=== PATIENT | male | born 1945 | race Caucasian/White ===

== ENCOUNTER 2024-08-15 19:16 | Emergency (ER) | payer MEDICARE, OTHER ==
[~2024-08-15] VITALS: Ht 177.8 cm; Wt 77.2 kg
--- NOTE | 2024-08-15 19:57 | ED.PDOC ---
History of Present Illness HPI Comments 79 y/o M is BIBA for c/o ingestion and suicidal ideations, today. Per EMS report, patient ingested 10mg of his 's morphine medication in addition to drinking heavy amount of EtOH in an attempt to end his life following his recent CA Dx and hospice placement. Per [facility] report, patient is GCS15 and is A &Ox4. Patient, at time of assessment, endorses sentiment on having no reason to live prior to doing aforementioned actions but, now, has second thoughts. He denies having any homicidal ideations, visual or auditory hallucinations, nausea, vomiting, weakness, tremors, or other associated symptoms or modifiers at this time. It appears to just be in morning for the end of his 's life. Patient does not have a counselor or any access to grief counseling. Chief Complaint: Suicidal Time Seen by MD: 19:30 Reviewed Notes: Nurses Notes, Medications, Allergies Information Source: Patient, Emergency Med Personnel Mode of Arrival: Ambulatory Severity: Moderate Timing: Hours Duration: Since onset Prehospital treatment: None Past Medical History PAST MEDICAL HISTORY: Denies Surgical History: Denies all surgeries Family History Family History: Unknown Social History Smoker: Non-Smoker Alcohol: Occasionally Drugs: Denies Drug Use Lives In: Home Constitutional: reports: others (EtOH and opioid ingestion ); denies: chills, diaphoresis, fatigue, fever, malaise, sweats, weakness EENTM: denies: blurred vision, double vision, ear bleeding, ear discharge, ear drainage, ear pain, ear ringing, eye pain, eye redness, hearing loss, mouth pain, mouth swelling, nasal discharge, nose bleeding, nose congestion, nose pain, photophobia, tearing, throat pain, throat swelling, voice changes, others Respiratory: denies: cough, hemoptysis, orthopnea, SOB at rest, shortness of breath, SOB with excertion, stridor, wheezing, others Cardiovascular: denies: chest pain, dizzy spells, diaphoresis, Dyspnea on exertion, edema, irregular heart beat, left arm pain, lightheadedness, palpitations, PND, syncope, others Gastrointestinal: denies: abdomen distended, abdominal pain, blood streaked bowels, constipated, diarrhea, dysphagia, difficulty swallowing, hematemesis, melena, nausea, poor appetite, poor fluid intake, rectal bleeding, rectal pain, vomiting, others Genitourinary: denies: burning, dysuria, flank pain, frequency, hematuria, incontinence, penile discharge, penile sore, pain, testicle pain, testicle swelling, urgency, others Neurological: denies: dizziness, fainting, headache, left sided numbness, left sided weakness, numbness, paresthesia, pre-existing deficit, right sided numbness, right sided weakness, seizure, speech problems, tingling, tremors, weakness, others Musculoskeletal: denies: back pain, gout, joint pain, joint swelling, muscle pain, muscle stiffness, neck pain, others Integumetry: denies: bruises, change in color, change in hair/nails, dryness, laceration, lesions, lumps, rash, wounds, others Allergic/Immunocompromised: denies: Difficulty Healing, Frequent Infections, Hives, Itching, others Hematologic/Lymphatic: denies: anemia, blood clots, easy bleeding, easy bruising, swollen glands, others Endocrine: denies: excessive hunger, excessive sweating, excessive thirst, excessive urination, flushing, intolerance to cold, intolerance to heat, unexplained weight gain, unexplained weight loss, others Psychiatric: reports: depression, suicidal; denies: anxiety, bipolar disorder, hopeless, panic disorder, schizophrenia, sleepless, others All Other Systems: Reviewed and Negative (all pertinent negative unless otherwise stated in HPI) Physical Exam General Appearance: Moderate Distress (Patient is a moderate distress due to grief related to his 's chronic and terminal illness.), Normal HEENT: Normal ENT Inspection, Pharynx Normal, TMs Normal Neck: Full Range of Motion, Non-Tender, Normal, Normal Inspection Respiratory: Chest Non-Tender, Lungs Clear, No Accessory Muscle Use, No Respiratory Distress, Normal Breath Sounds Cardiovascular: No Edema, No JVD, No Murmur, No Gallop, Normal Peripheral Pulses, Regular Rate/Rhythm Breast Exam: Deferred Gastrointestinal: No Organomegaly, Non Tender, No Pulsatile Mass, Normal Bowel Sounds, Soft Genitalia: Deferred Pelvic: Deferred Rectal: Deferred Extremities: No calf tenderness, Normal capillary refill, Normal inspection, Normal range of motion, Non-tender, No pedal edema Musculoskeletal : Apperance: Normal Neurologic: Alert, No Motor Deficits, No Sensory Deficits Cerebellar Function: Normal Reflexes: Normal Skin: Dry, Normal Color, Warm Lymphatic: No Adenopathy Was a procedure done? Was a procedure done?: No Differential Dx Considerations may include: EtOH ingestion, opioid ingestion, overdose, substance abuse, suicidal ideations, hopelessness, depression X-Ray, Labs, Meds, VS Vital Signs Date Time Temp Pulse Resp B/P (MAP) Pulse Ox O2 Delivery O2 Flow Rate FiO2 08/15/24 19:16 98.9 80 14 138/78 (98) 99 Lab Test 08/15/24 19:58 08/15/24 19:52 Range/Units Urine Color Colorless Yellow Urine Clarity Clear Clear Urine pH 5.0 5.0-9.0 Urine Specific [place] 1.008 1.001-1.035 Urine Protein Negative Negative Urine Ketones Negative Negative Urine Blood Negative Negative /uL Urine Nitrite Negative Negative Urine Bilirubin Negative Negative Urine Urobilinogen Normal Negative mg/dL Urine Leukocyte Esterase Negative Negative /uL Urine RBC 1 0 - 3 /hpf Urine WBC <1 0 - 3 /hpf Urine Squamous Epithelial Cells Few <5 /hpf Urine Bacteria None seen None Seen /hpf Urine Glucose Normal Normal mg/dL Urine Opiates Screen Neg NEGATIVE Urine Fentanyl Screen Neg NEGATIVE Urine Barbiturates Screen Neg NEGATIVE Urine Phencyclidine Screen Neg NEGATIVE Urine Amphetamines Screen Neg NEGATIVE Urine Benzodiazepines Screen Neg NEGATIVE Urine Cocaine Screen Neg NEGATIVE Urine Cannabinoids Screen Neg NEGATIVE White Blood Count 7.5 4.4-10.8 10^3/uL Red Blood Count 2.89 L 4.5-5.90 10^6/uL Hemoglobin 12.7 L 13.5-17.5 g/dL Hematocrit 37.2 L 41.0-53.0 % Mean Corpuscular Volume 128.5 H 80.0-100.0 fL Mean Corpuscular Hemoglobin 44.1 H 28.0-32.0 pg Mean Corpuscular Hemoglobin Concent 34.3 32.0-36.0 g/dL Red Cell Distribution Width 15.7 H 11.8-14.3 % Platelet Count 213 140-450 10^3/uL Mean Platelet Volume 7.9 6.9-10.8 fL Neutrophils (%) (Auto) 85.7 H 37.0-80.0 % Lymphocytes (%) (Auto) 8.8 L 10.0-50.0 % Monocytes (%) (Auto) 3.7 0.0-12.0 % Eosinophils (%) (Auto) 1.0 0.0-7.0 % Basophils (%) (Auto) 0.8 0.0-2.0 % Neutrophils # (Auto) 6.4 1.6-8.6 10 ^3/uL Lymphocytes # (Auto) 0.7 0.4-5.4 10 ^3/uL Monocytes # (Auto) 0.3 0-1.3 10 ^3/uL Eosinophils # (Auto) 0.1 0-0.8 10 ^3/uL Basophils # (Auto) 0.1 0-0.2 10 ^3/uL Nucleated Red Blood Cells 0.1 % Sodium Level 143 136-145 mmol/L Potassium Level 4.5 3.5-5.1 mmol/L Chloride Level 108 H 98-107 mmol/L Carbon Dioxide Level 25 20-31 mmol/L Anion Gap 10 5-15 Blood Urea Nitrogen 23 9-23 mg/dL Creatinine 1.26 0.700-1.30 mg/dL Glomerular Filtration Rate Calc 58 >90 mL/min BUN/Creatinine Ratio 18.3 10.0-20.0 Serum Glucose 81 74-106 mg/dL Calcium Level 9.9 8.7-10.4 mg/dL Total Bilirubin 0.5 0.2-1.0 mg/dL Aspartate Amino Transferase (AST) 32 13-40 U/L Alanine Aminotransferase (ALT) 44 H 7-40 U/L Alkaline Phosphatase 87 46-116 U/L Total Protein 7.5 5.7-8.2 g/dL Albumin 4.6 3.2-4.8 g/dL Lipase 53 12-53 U/L Plasma/Serum Blood Alcohol 118.4 H <10 mg/dL X-Ray, Labs, Meds, VS Comment Patient's laboratories were remarkable for ETOH use. Patient spoke with our tele psychiatrist Dr. Glaser. He has cleared with the patient for discharge home and has provide the patient with some resources to aid him moving forward. Time of 1ST Reevaluation: 23:51 Reevaluation 1ST: Improved Consultation: PCP, Psychiatry Patient Education/Counseling: Diagnosis, Treatment Family Education/Counseling: Diagnosis, Treatment, No Family Present Departure 1 Departure Time of Disposition: 23:51 Impression: Primary Impression: Depression Additional Impression: Alcohol abuse Disposition: 01 HOME / SELF CARE / HOMELESS Condition: Stable Additional Instructions: Advised patient cease utilizing alcohol during this difficult time and additi onally, advised following up with some of Dr. Glaser's recommendations to aid in family support during this difficult period. Discharged With: Self, Relative Critical Care Note Critical Care Time?: No Stability Stability form required: No Heart Score Heart Score: Heart Score Response (Comments) Value History N/A 0 EKG N/A 0 Age N/A 0 Risk Factors N/A 0 Troponin N/A 0 Total 0 I personally scribed for SHADIA SANCHEZ PAC ([email or web address]) on 08/15/24 at 19:57. Electronically submitted by Sav Cohen ([email or web address]). SHADIA SANCHEZ PAC Aug 15, 2024 19:57
[2024-08-15 20:06] LABS: Basophils # (auto) 0.1 10 ^3/uL (0-0.2); Basophils % (auto) 0.8 % (0.0-2.0); Eosinophils # (auto) 0.1 10 ^3/uL (0-0.8); Hematocrit 37.2 % (41.0-53.0); Hemoglobin 12.7 g/dL (13.5-17.5); Lymphocytes # (auto) 0.7 10 ^3/uL (0.4-5.4); Lymphocytes % (auto) 8.8 % (10.0-50.0); Mean Corpuscular Hemoglobin 44.1 pg (28.0-32.0); Mean Corpuscular Hgb Conc. 34.3 g/dL (32.0-36.0); Mean Corpuscular Volume 128.5 fL (80.0-100.0); Monocytes # (auto) 0.3 10 ^3/uL (0-1.3); Monocytes % (auto) 3.7 % (0.0-12.0); Neutrophils # (auto) 6.4 10 ^3/uL (1.6-8.6); Neutrophils % (auto) 85.7 % (37.0-80.0); Nucleated Red Blood Cells % 0.1 %; Platelet Count (auto) 213 10^3/uL (140-450); Red Blood Cells 2.89 10^6/uL (4.5-5.90); Red Cell Distribution Width 15.7 % (11.8-14.3); White Blood Cell 7.5 10^3/uL (4.4-10.8)
[2024-08-15 20:42] LABS: Albumin 4.6 g/dL (3.2-4.8); Alkaline Phosphatase 87 U/L (46-116); Anion Gap 10 (5-15); Aspartate Aminotransferase 32 U/L (13-40); BUN/Creatinine Ratio 18.3 (10.0-20.0); Bilirubin, Total 0.5 mg/dL (0.2-1.0); Blood Alcohol 118.4 mg/dL (<10); Blood Urea Nitrogen 23 mg/dL (9-23); Calcium 9.9 mg/dL (8.7-10.4); Carbon Dioxide 25 mmol/L (20-31); Glucose 81 mg/dL (74-106); Potassium 4.5 mmol/L (3.5-5.1); Sodium 143 mmol/L (136-145); Total Protein 7.5 g/dL (5.7-8.2)
[2024-08-15 20:45] LABS: Alanine Aminotransferase 44 U/L (7-40); Chloride 108 mmol/L (98-107)
[2024-08-15 20:55] LABS: Lipase 53 U/L (12-53)
[2024-08-15 21:32] LABS: Urine Bacteria None Seen /hpf (None Seen)
[2024-08-15 21:59] LABS: Urine Blood Negative /uL (Negative); Urine Clarity Clear (Clear); Urine Color Colorless (Yellow); Urine Protein, UAD Negative (Negative); Urine Specific Gravity 1.008 (1.001-1.035); Urine Urobilinogen Normal (Negative); Urine WBC <1 /hpf (0 - 3)
[2024-08-15 22:00] LABS: Amphetamine Screen, Urine Neg (NEGATIVE); Barbiturate Scree,Urine Neg (NEGATIVE); Benzodiazephine Screen, Urine Neg (NEGATIVE); Cocaine Screen, Urine Neg (NEGATIVE)
[2024-08-15 22:01] LABS: Cannabinoid Screen, Urine Neg (NEGATIVE); Opiate Scree,Urine Neg (NEGATIVE); Phencyclidine Screen, Urine Neg (NEGATIVE)
--- NOTE | 2024-08-15 23:54 | DVHINCON2 ---
Date of Service if different f: Aug 15, 2024 Time of Service: 23:28 Consult Consult Note PSYCHIATRY ED NEW CONSULT HPI: 79 yo M with no known PPH presents to ED BIBA for safety, psychiatric stabilization and possible med initiation in setting of suicide attempt via intentional drug OD. Psychiatry consulted for safety evaluation and recommendations in context of current presentation Per pt, reports intentionally ingestion of ~10 cc of his 's morphine that was in her syringe and admits to drinking heavy amount of ETOH/vodka in an attempt to end his life following his recent CA dx and hospice placement at home. Pt now states "i have too much responsibility to take care of my and my family and what I did was stupid and selfish of me". pt adamantly denies SI currently and expresses remorse and regret for earlier ingestion Pt endorses some depressed mood and unspecified anxiety symptoms but denies hopelessness, helplessness, isolation, negative thoughts, loss of interest, or anhedonia. Denies panic/OCD/PTSD symptoms. Sleep/appetite/energy/conc relatively WNL. Adamantly denies SI/HI. Denies AVH/paranoia/catatonic/perceptual disturbances/personality changes. No overt manic, psychotic, major depressive, cognitive, dissociative phenomena, panic, or somatic symptoms noted. Appears somewhat future oriented/goal directed Pt currently does not have psychiatrist/therapist out in community. Currently not on any psychotropic agents. No prior psych med trials. Denies ETOH, THC or IDU. with 2 adult children, retired, lives with at home, adult son lives nearby, no legal issues, some support system noted (immediate family). Unknown trauma hx. Unknown FH. No acute medical issues although has chronic medical issues. No hx of seizures/TBI, or recent head injuries, NKDA Does not have hx of suicide attempts, SIB/PSG, or prior psych hospitalizations/5150. Denies history of violence, unprovoked aggression, or assaultive behaviors. Denies recent hx of impulsivity, attention seeking behaviors, anger outbursts, emotional dysregulation, mood reactivity or engaging in risky behaviors. Does not have access to firearms. Currently denies SI/HI. Identifies self/family as PPF. No safety concerns noted during encounter. MSE: General Appearance/Behavior: Alert and awake; appears stated age, well developed , fair grooming and hygiene; calm and cooperative, fair eye contact, no PMA/PMR Speech: coherent, rrr Thought Process: linear, logical, appears goal-directed Thought Content: Abnormal Thoughts and Perceptions: None Homicidality / Violent Thoughts: None Suicidality: adamantly denies SI Hallucinations: denies AVH Delusions: denies paranoia, persecutory, or grandiose delusions Obsessions /compulsions : None Judgment and Insight: fair/improved judgment with fair insight Mood & Affect: "okay, little tired" with mood-congruent, somewhat constricted/restricted, appropriate Orientation: oriented to person, place, time Attention/Concentration: appears intact Memory: grossly intact Language: no unusual or inappropriate language Assessment: 79 yo M with no known PPH presents to ED BIBA for safety, psychiatric stabilization and possible med initiation in setting of suicide attempt via intentional drug OD. Currently denies SI/HI/AVH. Linear and appears future oriented/ goal directed in thought. Identifies several protective factors including a desire to live, family support, spirituality, etc. No hx of SI/SA/SIB or prior psych hos pitalizations is reassuring. Pts presenting MH symptoms appear more secondary to difficulty controlling emotions and ineffective coping mechanisms in context of acute stressor related to spouse deteriorating health (see HPI) with minimal interference in daily functioning. Presently, pt does not show any signs of immediate danger to self or others that would warrant a higher level of care. Thus, pt does not meet criteria for 5150 or involuntary inpatient psych admission as is not DTS, DTO or GD although vo luntary inpt psychiatric hospitalization was offered but pt respectfully declined. Also declined further ED observation/reassessment. No acute safety concerns noted. 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 Depressive disorder unspecified Plan: Does not warrant involuntary inpatient psychiatric hospitalization or 5150 hold at this time No acute safety concerns Pt can be safely discharged back to current residence Supportive tx provided, discussed safety plan with pt Encouraged mindfulness techniques (reading, walking, meditation, exercise, deep breathing) during times of stress Would benefit from establishing community MH services for psychotx please provide pt MH resources prior to discharge per pts request Instructed pt to call [phone] or return to ED if mood symptoms worsen or new onset SI/HI upon discharge low threshold for inpt psych admission if pt returns with similar CC/presentation Pt verbalized understanding and is receptive to above tx plan This case was discussed with ED nurse/provider and all parties in agreement with above tx plan Alexys Balbuena MD Plan discussed with: Patient ALEXYS BALBUENA MD Aug 15, 2024 23:54
[2024-08-16 00:08] VITALS: BP 136/84; TEMP 98.5
[2024-08-16 00:37] VITALS: PULSE 89; RESP 16; O2SAT 95
== END 2024-08-16 00:08 | disposition home or self-care (01) ==
LOC: ER 19:16 → EDBD 19:16 → ER 08-16 00:08
DX: F32.A Depression, unspecified (principal); F10.10 Alcohol abuse, uncomplicated; Z79.899 Other long term (current) drug therapy
CPT/HCPCS: 36415; 80053; 80307; 80320; 81001; 83690; 85025